=== PATIENT | male | born 1995 | race Caucasian/White ===

== ENCOUNTER 2023-11-15 18:23 | Emergency (ER) | payer SELFPAY ==
[~2023-11-15] VITALS: Ht 172.7 cm; Wt 84.4 kg
[2023-11-15 18:45] VITALS: TEMP 98.3; O2SAT 98
[2023-11-15 19:51] VITALS: PULSE 78; RESP 16; O2SAT 98
[2023-11-15 20:00] VITALS: BP 112/63
[2023-11-15] MEDS: MORPHINE SULFATE 4 MG/ML INJ (FOR IV/IM USE) IM ONE (20:00)
[2023-11-15] MEDS: ONDANSETRON HCL 4MG/2ML INJ IM ONE (20:00)
[2023-11-15] MEDS ORDERED: NAPR500T7 MT (20:20)
[2023-11-15] MEDS ORDERED: LIDO700A15 TP (20:21)
== END 2023-11-15 20:39 | disposition home or self-care (01) ==
LOC: ER 18:23
DX: M54.50 Low back pain, unspecified (principal)
CPT/HCPCS: 99284; 72100; 96372; J2405; J2270